=== PATIENT | male | born 1950 | race Caucasian/White ===

== ENCOUNTER → 2023-09-09 07:11 | Outpatient (REF) | payer MEDICARE, SELFPAY | LOC: MRI 07:11 | PROVIDERS: ATTENDING PHYSICIAN Internal Medicine; FAMILY PHYSICIAN Family Medicine | DX: M54.59 Other low back pain (principal); M54.16 Radiculopathy, lumbar region; M47.817 Spondylosis without myelopathy or radiculopathy, lumbosacral region | CPT/HCPCS: 72148 ==

== ENCOUNTER → 2024-07-31 12:42 | Outpatient (REF) | payer OTHER, SELFPAY | LOC: RAD 12:42 | PROVIDERS: ATTENDING PHYSICIAN Family Medicine | DX: R31.29 Other microscopic hematuria (principal); R30.0 Dysuria; R11.0 Nausea; R10.9 Unspecified abdominal pain | CPT/HCPCS: 76770 ==